=== PATIENT | male | born 1965 | race Caucasian/White ===

== ENCOUNTER 2016-08-08 16:34 | Emergency (ER) | payer MEDICAID ==
[~2016-08-08] VITALS: Ht 182.9 cm; Wt 61.2 kg
[~2016-08-08 16:34] MED LIST: ALBU8.5H8 INH; CLON1TAB4 PO; HYDR-4100 PO; LEVE750T4 PO; METH500T PO; OMEP40CA33 PO; SERT50TA12 PO; ZOLP5TAB2 PO
[2016-08-08 16:40] VITALS: BP_SYST 111
[2016-08-08] MEDS ORDERED: ONDANSETRON HCL 4 MG/2 ML VIAL IM ONE (18:45)
[2016-08-08] MEDS ORDERED: HYDROmorphone 1 MG INJ. 1 MG/ML AMPUL IM ONE (18:45)
[2016-08-08] MEDS ORDERED: ACETAMINOPHEN 500 MG TABLET PO ONE (19:15)
[2016-08-08] MEDS ORDERED: DIPH-TET-PERTUS Vaccine 0.5 ML VIAL (ADACEL) I.M. ONE (19:15)
[2016-08-08 19:24] VITALS: BP_SYST 108
== END 2016-08-08 19:24 | disposition home or self-care (01) ==
LOC: SED 16:34
DX: G89.29 Other chronic pain (principal); M54.5 Low back pain; J45.909 Unspecified asthma, uncomplicated; K21.9 Gastro-esophageal reflux disease without esophagitis; Z88.1 Allergy status to other antibiotic agents
CPT/HCPCS: 72100; 90471; 90715; 96372; 99284; J1170; J2405

== ENCOUNTER 2016-08-17 17:16 | Emergency (ER) | payer MEDICAID ==
[~2016-08-17] VITALS: Ht 182.9 cm; Wt 61.2 kg
[~2016-08-17 17:16] MED LIST changes: +OMEP20CA4 PO; +PEPCID; +VENTOLIN INHALER
[2016-08-17 17:23] VITALS: BP 137/82; PULSE 104; RESP 16; TEMP 97.1; O2SAT 95
[2016-08-17] MEDS ORDERED: KETOROLAC TROMETHAMINE 60 MG/2 ML VIAL IM ONE (17:45)
[2016-08-17] MEDS ORDERED: DIPHENHYDRAMINE INJ 50 MG/ML VIAL IM ONE (18:15)
[2016-08-17] MEDS ORDERED: MORPHINE SULFATE 10 MG/ML VIAL IM ONE (18:15)
[2016-08-17 19:18] VITALS: BP 129/78; PULSE 89; RESP 18; TEMP 97.1; O2SAT 95
== END 2016-08-17 19:18 | disposition home or self-care (01) ==
LOC: SED 17:16
DX: G89.29 Other chronic pain (principal); M54.5 Low back pain; J45.909 Unspecified asthma, uncomplicated; K21.9 Gastro-esophageal reflux disease without esophagitis; Z88.1 Allergy status to other antibiotic agents
CPT/HCPCS: 96372; 99284; J1200; J2270

== ENCOUNTER 2016-08-17 21:59 | Emergency (ER) | payer MEDICAID ==
[~2016-08-17] VITALS: Ht 182.9 cm; Wt 63.5 kg
[2016-08-17] MEDS ORDERED: HYDROmorphone 1 MG INJ. 1 MG/ML AMPUL IM ONE (22:15)
[2016-08-17] MEDS ORDERED: ONDANSETRON 4 MG ODT TAB PO ONE (22:15)
[2016-08-17 22:20] VITALS: BP 112/74; PULSE 90; RESP 18; TEMP 98; O2SAT 18
[2016-08-17 22:40] VITALS: BP 98/56; PULSE 87; RESP 20; TEMP 98.3; O2SAT 94
== END 2016-08-17 22:40 | disposition home or self-care (01) ==
LOC: SED 21:59
DX: G89.29 Other chronic pain (principal); M54.5 Low back pain; J45.909 Unspecified asthma, uncomplicated; K21.9 Gastro-esophageal reflux disease without esophagitis; Z88.1 Allergy status to other antibiotic agents
CPT/HCPCS: 96372; 99283; J1170; Q0162

== ENCOUNTER 2016-08-19 21:31 | Emergency (ER) | payer MEDICAID ==
[~2016-08-19] VITALS: Ht 182.9 cm; Wt 65.8 kg
[~2016-08-19 21:31] MED LIST changes: -OMEP20CA4 PO; -PEPCID; -VENTOLIN INHALER
[2016-08-19 21:45] VITALS: BP_SYST 105
[2016-08-19] MEDS ORDERED: KETOROLAC TROMETHAMINE 60 MG/2 ML VIAL IM ONE (23:00)
[2016-08-19 23:18] VITALS: BP_SYST 105
== END 2016-08-19 23:18 | disposition home or self-care (01) ==
LOC: SED 21:31
DX: G89.29 Other chronic pain (principal); M54.5 Low back pain; J45.909 Unspecified asthma, uncomplicated; K21.9 Gastro-esophageal reflux disease without esophagitis; Z88.1 Allergy status to other antibiotic agents
CPT/HCPCS: 96372; 99283; J1885

== ENCOUNTER 2016-08-20 22:02 | Emergency (ER) | payer MEDICAID ==
[~2016-08-20] VITALS: Ht 182.9 cm; Wt 68.0 kg
[2016-08-20 22:15] VITALS: BP_SYST 133
--- NOTE | 2016-08-20 22:15 | NUR ---
Patient triaged and placed in waiting room. VSS and patient appears in no acute distress at this time. Accompanied by self, awaiting available bed, and MD notified of need for MSE.
--- NOTE | 2016-08-21 00:50 | NUR ---
Patient to ER bed 5 to gown for evaluation. Side rails up. Report given to LIAT Crow.
--- NOTE | 2016-08-21 00:59 | NUR ---
Pt. presented to ED with c/o chronic lower back pain. Pt. states he has been in multiple ER's within the last 5 days for the same complaint and was just at [facility] today.
--- NOTE | 2016-08-21 01:14 | NUR ---
ER at bedside examining patient.
[2016-08-21] MEDS ORDERED: MORPHINE 4 MG/ML INJ. SYRINGE IM ONE (01:15)
--- NOTE | 2016-08-21 01:28 | NUR ---
Patient given written and verbal discharge instructions and verbalizes understanding. ER MD discussed with patient the results and treatment provided. Patient in stable condition. ID arm band removed. No Rx given. Patient educated on pain management and to follow up with PMD. Pain Scale 8/10 Opportunity for questions provided and answered.
[2016-08-21 01:31] VITALS: BP_SYST 124
== END 2016-08-21 01:31 | disposition home or self-care (01) ==
LOC: SED 22:02
DX: M54.5 Low back pain (principal); J45.909 Unspecified asthma, uncomplicated; K21.9 Gastro-esophageal reflux disease without esophagitis; Z88.1 Allergy status to other antibiotic agents
CPT/HCPCS: 96372; 99283; J2270

== ENCOUNTER 2016-08-22 17:14 | Emergency (ER) | payer MEDICAID ==
[~2016-08-22] VITALS: Ht 182.9 cm; Wt 72.6 kg
[2016-08-22 17:14] VITALS: BP_SYST 111
--- NOTE | 2016-08-22 17:14 | NUR ---
Note dee in EDM - 08/22/16 at 1733 by ARNALDO Pt BIB BLS from [facility], placed to ER bed 02. Pt here r/t clogged and leaking suprapubic cath. Gauze to site soaked in yellow urine. NAD.
[2016-08-22 17:15] VITALS: BP_SYST 142
--- NOTE | 2016-08-22 17:15 | NUR ---
Patient triaged and placed in waiting room. VSS and patient appears in no acute distress at this time. Accompanied by SELF, awaiting available bed, and MD notified of need for MSE.
--- NOTE | 2016-08-22 17:48 | NUR ---
BROUGHT BACK TO BED #8 AND WILL ASSUME CARE.
--- NOTE | 2016-08-22 17:51 | NUR ---
PT STATES THAT HE WANTS ONLY DILAUDID TODAY AND SECURITY CALLED DUE TO THREATS MADE. DR NASH EXAMINED PT AND EXPLAINED TO PT THAT HE WILL NOT BE GETTING A SHOT OF DILAUDID. PT IRRATE WITH STAFF, SECURITY AT BEDSIDE.
--- NOTE | 2016-08-22 17:52 | NUR ---
DR NASH AT BEDSIDE FOR EVALUATION
--- NOTE | 2016-08-22 17:58 | NUR ---
PATIENT DID NOT SIGN DISCHARGE PAPERWORK. DR NASH AWARE Rx of NONE given. Patient educated on pain management and to follow up with PMD. Pain Scale UNNABLE TO ASSESS. Opportunity for questions provided and answered.
== END 2016-08-22 17:58 | disposition home or self-care (01) ==
LOC: SED 17:14
DX: G89.29 Other chronic pain (principal); M54.5 Low back pain; J45.909 Unspecified asthma, uncomplicated; K21.9 Gastro-esophageal reflux disease without esophagitis; Z76.5 Malingerer [conscious simulation]; Z88.1 Allergy status to other antibiotic agents
CPT/HCPCS: 99281